=== PATIENT | female | born 1980 | race Caucasian/White ===

== ENCOUNTER 2016-11-05 17:52 | Emergency (ER) | payer MEDICAID ==
[~2016-11-05] VITALS: Ht 149.9 cm; Wt 118.2 kg
[~2016-11-05 17:52] MED LIST: NO HOME MEDICATIONS; PRENATAL1 TA1 PO
[2016-11-05 17:56] VITALS: BP 166/91; TEMP 98.8
[2016-11-05] MEDS ORDERED: NORCO 325 MG-51 TAB PO (19:01)
[2016-11-05 19:28] VITALS: PULSE 78
== END 2016-11-05 19:30 | disposition home or self-care (01) ==
LOC: COL.ER 17:52
DX: L84 Corns and callosities (principal)